=== PATIENT | female | born 1970 | race Caucasian/White ===

== ENCOUNTER 2016-07-16 20:56 | Emergency (ER) | payer OTHER ==
[~2016-07-16] VITALS: Ht 162.6 cm; Wt 72.6 kg
[~2016-07-16 20:56] MED LIST: BROMFED DM COU118 ML PO; DOXYCYCLINE100 MG PO; PROAIR HFA0.09 MG/Ac INH
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
[2016-07-16 22:19] VITALS: BP 138/87
[2016-07-16] MEDS ORDERED: SILVADENE20 GM TOP (22:22)
[2016-07-16] MEDS ORDERED: PERCOCET 5-3251 EACH PO (22:22)
== END 2016-07-16 22:41 ==
LOC: ERH 20:56
DX: T23.161A Burn of first degree of back of right hand, initial encounter (principal); X08.8XXA Exposure to other specified smoke, fire and flames, initial encounter; Y93.G2 Activity, grilling and smoking food; Y92.9 Unspecified place or not applicable
CPT/HCPCS: 96372